=== PATIENT | male | born 1950 | race Caucasian/White ===

== ENCOUNTER → 2016-07-07 | Day surgery (SDC) | payer MEDICARE, OTHER ==
[~2016-07-07] VITALS: Ht 180.3 cm; Wt 122.7 kg
[~2016-07-07] MED LIST: ALBUTEROL2.5 MG/31 INH; ALDACTONE25 MG PO; ALTACE10 MG PO; ASPIRIN EC81 MG PO; BYSTOLIC5 MG PO; CENTRUM SILVER1 TAB PO; CLINDAMYCIN PO; COREG6.25 MG PO; CPAP INH; IMDUR30 MG PO; KEFLEX500 MG PO; LASIX40 MG PO; LEVOTHROID (S200 MCG PO; LEVOTHROID(SY175 MCG PO; LIPITOR40 MG PO; NEXIUM40 MG; OMEPRAZOLE20 MG PO; PEPCID20 MG PO; PLAVIX75 MG PO; PRILOSEC10 MG PO; PROAIR HFA8.5 GM INH; PROBIOTIC250 MG PO; SINGULAIR10 MG PO; SYMBICORT 16010.2 GM INH; XARELTO20 MG PO
== END | disposition disaster alternative care site (69) ==
LOC: GPOC 07-03 10:00 → GEND 07:30 → GPOC 08:00
PROC: 0DB98ZX Excision of Duodenum, Via Natural or Artificial Opening Endoscopic, Diagnostic (ICD-10-PCS; principal; 2016-07-07)
DX: D13.2 Benign neoplasm of duodenum (principal); K22.2 Esophageal obstruction; K21.0 Gastro-esophageal reflux disease with esophagitis; K44.9 Diaphragmatic hernia without obstruction or gangrene; I12.9 Hypertensive chronic kidney disease with stage 1 through stage 4 chronic kidney disease, or unspecified chronic kidney disease; N18.9 Chronic kidney disease, unspecified; I25.10 Atherosclerotic heart disease of native coronary artery without angina pectoris; I73.9 Peripheral vascular disease, unspecified; J44.9 Chronic obstructive pulmonary disease, unspecified; J45.909 Unspecified asthma, uncomplicated; E03.9 Hypothyroidism, unspecified; E78.5 Hyperlipidemia, unspecified; F17.210 Nicotine dependence, cigarettes, uncomplicated; E66.9 Obesity, unspecified; Z68.37 Body mass index [BMI] 37.0-37.9, adult; Z79.899 Other long term (current) drug therapy; Z79.01 Long term (current) use of anticoagulants; Z79.2 Long term (current) use of antibiotics; Z90.49 Acquired absence of other specified parts of digestive tract; Z98.890 Other specified postprocedural states
CPT/HCPCS: J2001; J7030

== ENCOUNTER → 2016-11-13 | Outpatient (CLI) | payer MEDICARE, OTHER ==
--- NOTE | ~2016-11-13 | ESTC ---
Cardiac Perfusion Imaging Demographics Patient Name FAHAD Syed Gender Male Patient Number [id number] Race Visit Number [id number] Ethnicity [employer] Room Number Accession Number [id number] Height 71 inches Date of 1950 Weight 275 pounds Craig Sherwood MD Interpreting Sedrickntaleah Arthur Date of study 11/13/2016 Physician Supervising MD/MLP Sarita Peter NM Technologist Gloria Srinivasan MD Ordering Physician Stress seed technician Stress ECG Reading Sarita Peter Nurse Patricio Srinivasan MD commercial energy rater Procedure Type: Nuclear Stress Test:Pharmacological, Cardiolite Stress Test Procedure Start time: 11/13/2016 00:00 Indications: Shortness of breath. Risk Factors The patient risk factors include:prior PCI;prior CABG;obesity, former tobacco use, treated hypertension, family history of premature CAD, chronic lung disease, prior heart failure and prior [place] . Conclusions Impression ECG portion of the lexiscan stress test is clinically negative for ischemia by diagnostic criteria. Myocardial perfusion imaging is moderately abnormal. The images reveal a mildly reversible defect in the distal anterior wall and apical inferior and anteroapex consistent with ischemia in the territory of the left anterior descending artery . Overall left ventricular systolic function was normal, calculated LVEF was 54%. The distal anterior and apex is hypokinetic. TID ratio is 1.07. This is a intermediate to high risk stress test. Stress Protocols Resting ECG Normal sinus rhythm. Pre-stress physical exam: Patient assessed by Dr Stein prior to testing. Stress Protocol:Pharmacologic Predicted HR: 153 bpm ECG Findings No ECG changes suggestive of ischemia. Arrhythmias No rhythm abnormality. Symptoms Shortness of breath. Stress Interpretation Appropriate hemodynamic response to Lexiscan. No significant ST-T wave changes with Lexiscan. ECG portion is negative for ischemia by diagnostic criteria. Imaging Results Summed scores - Summed stress score: 10 - Summed rest score: 6 - Summed difference score: 4 Stress ejection Ejection fraction:54 % EDV :106 ml ESV :49 ml Stroke volume :57 ml LV mass :157 gr Imaging Protocols Rest Stress Isotope:Tc99m Sestamibi IV Isotope: Tc99m Sestamibi IV Isotope dose:16.1 mCi Isotope dose:49.7 mCi Date:11/13/2016 07:12 Date:11/13/2016 08:54 Technique: SPECT Technique: Gated Supine SPECT Supine Scan Time:45-60 minutes post Scan Time:45-60 minutes post injection injection Procedure Medications - Regadenoson (Lexiscan) 0.4 mg IV over 10-15 sec. I.V. 0.4 mg. Medical History Admission Data Admission date: 11/13/2016 Admission Time: 06:48 Hospital Status: Outpatient. Signatures dtt: [facility] dtd: 11/13/16 0000 Physician Self Edit
== END | disposition disaster alternative care site (69) ==
LOC: GRAD 11-11 07:15
DX: I25.10 Atherosclerotic heart disease of native coronary artery without angina pectoris (principal); E66.9 Obesity, unspecified; R06.00 Dyspnea, unspecified; I10 Essential (primary) hypertension; I50.9 Heart failure, unspecified; J98.4 Other disorders of lung; I25.2 Old myocardial infarction; Z95.1 Presence of aortocoronary bypass graft; Z87.891 Personal history of nicotine dependence; Z86.79 Personal history of other diseases of the circulatory system
CPT/HCPCS: A9500; J2785

== ENCOUNTER 2016-11-27 07:47 | Outpatient (CLI) | payer MEDICARE, OTHER ==
[~2016-11-27] VITALS: Ht 180.3 cm; Wt 126.4 kg
--- NOTE | ~2016-11-27 | CATH ---
Cardiac Diagnostic + PCI Report Demographics Patient Name FAHAD Syed Gender Male Date of 1950 Age 66 year(s) Patient Number [id number] Date of Study 11/27/2016 Visit Number [id number] Room Number [id number] [place] [id number] Ht 180.34 cm Wt 126.4 kg Referring Winnie Sherwood Primary Physician Physician Performing Efstratiou Secondary Physician Physician Rome Srinivasan MD Diagnostic Efstratiou Assisting Physician Physician Rome Srinivasan MD Interventional Efstratiou Physician Installation Supervisor Physician Rome Srinivasan MD Findings and Conclusions Diagnostic Findings and Conclusion Patent recent stents to RCA graft and Left Main - LAD 100% mid. ROONEY is patent but white earth vessel is functionally occluded, responsible for anterior wall ischemia. Diagnostic Recommendations PCI to LAD. Interventional Findings and Conclusion Unable to recannalize LAD either antegrade or after ROONEY. Unable to recannalize diagonal as well. Interventional Recommendations Continue medical treatment. Procedure Description The patient was brought to the diagnostic cardiac catheterization-EP laboratory in the fasting, non-sedated state. Informed consent was obtained in the written and verbal form after the risks and benefits were explained. The patient had no further questions and agreed to proceed. The planned puncture-incision site(s) were shaved and prepped with ChloraPrep and draped in the usual sterile manner. Conscious sedation, supplemental oxygen, and pain control medications were delivered by a registered nurse under physician guidance. Surface ECG rhythm, blood pressure measurement, and pulse oximetry were monitored throughout the procedure. Arterial access. The access site was infiltrated with lidocaine. The vessel was entered with the Seldinger technique. A sheath was advanced into the vessel and used for catheter placement. Selective left coronary angiography. A catheter was advanced into the left coronary vessel ostium under Fluoroscopic guidance. Contrast was injected by hand. Images were obtained in multiple projections. Selective right coronary angiography. A catheter was advanced into the right coronary vessel ostium under fluoroscopic guidance. Contrast was injected by hand. Images were obtained in multiple projections. Selective SVG angiography. A catheter was advanced into the graft proximal anastomosis under fluoroscopic guidance. Contrast was injected by hand. Images were obtained in multiple projections. Selective ROONEY graft angiography. A catheter was advanced into the left internal mammary graft ostium under fluoroscopic guidance. Contrast was injected by hand. Images were obtained in multiple projections. Attempted PCI of LAD was unsuccessful. Arterial artery hemostasis was achieved. The patient was transferred to a regular nursing floor via cart accompanied by a nurse. The patient left the laboratory in stable condition. Diagnostic Cath Status: Elective Interventional Cath Status: Elective Procedure Procedure Type Diagnostic procedure:Angiography:, Coronary Angios PCI procedure:Drug Eluting Coronary Stent:, Attempted Indications: Abnormal Stress Test. The procedure was explained in detail to the patient. Risks, complications and alternative treatments were reviewed. Written consent was obtained. Medications Reviewed with Patient prior to Procedure. Angiographic Findings Dominance: Right Cardiac Arteries and Lesion Findings LMCA: Normal (0% Stenosis).Patent stent.There is a previous stent on LMCA Proximal subsection. LAD: Lesion on Dist LAD: Devices used - Whisper Wire .014 x 190. Number of passes: 3. - Runthrough NS .014 x 180. Number of passes: 1. Lesion on Mid LAD: 100% stenosis . Lesion on 1st Diag: Proximal subsection.95% stenosis . LCx: Lesion on Prox CX: 100% stenosis . RCA: Lesion on Prox RCA: 100% stenosis . Cardiac Grafts - There is a Vein graft that originates at the Aorta Right and attaches to the Dist RCA (Patent stent.).There is a previous stent on Aorta Right to Dist RCA Proximal Body. There is a previous stent on Aorta Right to Dist RCA Distal Body. There is a previous stent on Aorta Right to Dist RCA Proximal Body. There is a previous stent on Aorta Right to Dist RCA Proximal Body. - There is a Vein graft that originates at the Aorta Right and attaches to the 1st Ob Lily. - There is a ROONEY graft that originates at the ROONEY and attaches to the Dist LAD (ROONEY patent but white earth vessel functionally occluded.). Coronary Tree Procedure Data Procedure Date Date: 11/27/2016Start: 12:20 PMEnd: 01:32 PM Entry Locations - Retrograde Percutaneous access was performed through the Right Femoral artery (Primary location). A 6 Fr sheath was inserted. Hemostasis was successfully obtained using Angio-Seal STS PLUS ([facility] [facility]). Closure Comments: Performed by Dr. Stein.. Procedure Medications Order and Administration + + + +--------+ !Time !Medication !Dosage !Route ! + + + +--------+ !11/27/2016 12:19 PM !Versed !2 mg !I.V. ! + + + +--------+ !11/27/2016 12:19 PM !Fentanyl !50 mcg !I.V. ! + + + +--------+ !11/27/2016 12:31 PM !Oxygen !2 l/min !NC ! + + + +--------+ !11/27/2016 12:37 PM !Heparin (ACC_3) !8000 units !I.V. ! + + + +--------+ !11/27/2016 12:45 PM !Heparin (ACC_3) !4000 units !I.V. ! + + + +--------+ !11/27/2016 12:59 PM !Heparin (ACC_3) !3000 units !I.V. ! + + + +--------+ !11/27/2016 01:19 PM !Fentanyl !25 mcg !I.V. ! + + + +--------+ !11/27/2016 01:29 PM !Fentanyl !25 mcg !I.V. ! + + + +--------+ Devices Used - A6 Fr. BS JL 4 Diag. Catheter.Unable to cannulate the vessel. - A6 Fr. JL 4.5 JJ Guide Catheterwas used for:Left coronary angiography. - A6 Fr. BS JR 4 Diag. Catheterwas used for:Right coronary angiography. - A6 Fr. BS IMT Diag. Catheterwas used for:ROONEY. - A6 Fr. IM JJ Guide Catheterwas used for:LAD Intervention. - A6 Fr. JL 4 JJ Guide Catheterwas used for:LAD Intervention.Unable to cannulate the vessel. - A6 Fr. JL 4.5 JJ Guide Catheterwas used for:LAD Intervention. Contrast Material - Isovue [id number] ml Fluoroscopy Time: Diagnostic: 31:06 minutes. Total: 31:06 minutes. Fluoroscopy Dose: Diagnostic: 3161 mGy. Total: 3161 mGy. Estimated Blood Loss: [address] [facility] PCI Information PCI Indication:PCI for high risk Non-STEMI or unstable angina. Medical History Performed Procedures and Imaging Results - Stress testing with SPECT MPIwas performed. Results were: Positive. Risk/Extent of ischemia was: Intermediate risk. Allergies - Other:(Norvasc, Avocado, Banana, Kiwi, Latex). - Latex. - Other:(Amlodipine). - Latex. - Other:(Amlodipine). - Other:(Amlodipine). - Latex. Risk Factors The patient risk factors include:prior PCI on 09/18/2015; prior CABG on 04/19/2003;hypertension, family history of premature CAD, chronic lung disease, last creatinine: 1.4 mg/dl, creatinine clearance: 91.54 ml/min, dyslipidemia, former tobacco use, prior heart failure and prior [place] . Admission Data Admission Date: 11/27/2016 Admission Time: 07:47 AM Admit Source: Other Insurance Payors: Medicare. Admission Medications + +------+------+ + + + + !Medication !Dosage!Times !Last !Last !Administered !Comments ! ! ! !Per !Delivery !Delivery ! ! ! ! ! !Day !Date !Time ! ! ! + +------+------+ + + + + !Statin (any)! ! ! ! !Yes ! ! + +------+------+ + + + + !Clopidogrel ! ! ! ! !Yes ! ! + +------+------+ + + + + !Beta Leigh Ann! ! ! ! !Yes ! ! !(any) ! ! ! ! ! ! ! + +------+------+ + + + + Clinical Evaluation Leading to Procedure - The patient's CAD presentation was assessed as: Stable angina. - The patient's anginal syndrome during the past two weeks was assessed as: Class II according to the [place] Cardiovascular Society Classification System (CCS). Anti-anginal medications were prescribed during the past two weeks. The medications are: Beta Blockers and Long Acting Nitrates. Snapshots Hemodynamics Condition: Rest O2 Consumption: Estimated: 276.20Heart Rate: 63 bpm Pressures (mmHg) +-----+ + !Site !Pressure ! +-----+ + !AO !110/66 (86) ! +-----+ + !AO !103/61 (78) ! +-----+ + Shunts Oxygen Values O2 Capacity 197.2 O2 Consumption 276.2 Discharge Data Discharge Date: 11/27/2016 Hospital Status: Outpatient Signatures dtt: Jess Stein dtd: 11/27/16 1220 Physician Self Edit
[2016-11-27 08:32] LABS: BASOPHIL % 0.7 %; EOSINOPHIL # 0.3 K/uL (0.0-0.5); HEMATOCRIT 41.2 % (37.0-53.0); HEMOGLOBIN 14.5 g/dL (11.0-16.0); IMMATURE GRANULOCYTE % 0.4 %; LYMPHOCYTE # 1.4 K/uL (0.8-4.0); LYMPHOCYTE % 24.7 %; MCH 33.7 pg (27.0-34.0); MCHC 35.2 gm/dL (32.0-36.5); MCV 95.8 fl (83.0-98.0); MONOCYTE # 0.6 K/uL (0.0-1.0); MONOCYTE % 11.6 %; MPV 11.8 fl (9.4-12.4); NEUTROPHIL # (ANC) 3.1 K/uL (1.4-9.0); NEUTROPHIL % 56.6 %; NRBC % 0 /100WBC (0-0.00); PLATELET COUNT 172 K/uL (150-450); RDW-CV 12.9 % (11.9-14.6); WBC 5.5 K/uL (4.0-11.0)
[2016-11-27 08:40] LABS: PROTIME 10.5 SECONDS (9.8-11.4); PTT 25 SECONDS (25-32)
[2016-11-27 08:48] LABS: ALBUMIN 3.9 gm/dL (3.5-5.0); CALCIUM 9.5 mg/dL (8.5-10.5); CREATININE 1.4 mg/dL (0.6-1.3); TOTAL BILIRUBIN 1.1 mg/dL (0.0-1.5); TOTAL PROTEIN 6.8 g/dL (6.0-8.4)
== END 2016-11-27 18:25 | disposition disaster alternative care site (69) ==
LOC: GPCU 07:47 → GCAT 07:47 → GPOC 08:00 → GCAT 18:25
PROVIDERS: Internal Medicine Cardiovascular Disease
PROC: 4A023N7 Measurement of Cardiac Sampling and Pressure, Left Heart, Percutaneous Approach (ICD-10-PCS; principal; 2016-11-27)
PROC: B216YZZ Fluoroscopy of Right and Left Heart using Other Contrast (ICD-10-PCS; 2016-11-27)
DX: R94.39 Abnormal result of other cardiovascular function study (principal); I44.0 Atrioventricular block, first degree; I25.10 Atherosclerotic heart disease of native coronary artery without angina pectoris
CPT/HCPCS: C1725; C1760; C1769; C1887; C1894; J1644; J2001; J2250; J3010; J7030